=== PATIENT | female | born 1990 | race Caucasian/White ===

== ENCOUNTER 2017-01-07 17:45 | Emergency (ER) | payer OTHER ==
--- NOTE | ~2017-01-07 | CT4 ---
[facility] A Service of [facility] RADIOLOGY TEXT RESULTS PATIENT: ROSE MUNOZ LOCATION: [facility] : 86 UNIT #: [id number] AGE: [address]: Raymond Og MD SEX: F ORDER DR: [id number] [facility] [address] [place], [place] [address] [id number] E MR#: [id number] Acc #: [id number] NAME: ROSE MUNOZ : 1990 SEX: F STUDY DATE/TIME: 01/07/2017 22:07 UNIT: [facility] ROOM: STUDY DESCRIPTION: CT Abd and Pelv Wo Cont Attending Physician: Raymond Og M.D. Ordering Physician: Raymond Og M.D. Primary Care Physician: Heriberto Espino M.D. MEDICAL IMAGING REPORT This report is preliminary unless electronic signature is present EXAM CT abdomen and pelvis without contrast INDICATIONS Abdominal pain for 3 months which is worse in the last week. The CT exam was performed with one or more of the following radiation dose reduction techniques: automatic exposure control, adjustment of mA and/or kV according to patient size, and iterative reconstruction. Comparison study 02/15/2016. Axial 3 mm images were obtained through the abdomen and pelvis without IV or oral contrast. FINDINGS Lung bases are clear. The liver, gallbladder, spleen, pancreas, adrenal glands and kidneys are normal. The right renal pelvis is slightly larger than the left but I do not think the calyces are distended and the ureter is not distended and there are no stones visible. The aorta is normal in size and there is no adenopathy. The bowel including the appendix appears normal. The uterus and adnexal regions normal except for an IUD. The bladder is normal. The bones are unremarkable. IMPRESSION 1. Normal appendix. 2. There is an IUD in good position in the uterus. 3. Otherwise normal. Dictated by... Tre Tran M.D. [facility] A Service of [facility] RADIOLOGY TEXT RESULTS PATIENT: ALEXANDER,ROSE LOCATION: [facility] : 86 UNIT #: [id number] AGE: [address]: Raymond Og MD SEX: F ORDER DR: THIS IS AN ELECTRONICALLY VERIFIED REPORT Tre Tran M.D. at 01/08/2017 1:36 PM Mayelin TD: 01/08/2017 12:26 JOB #: [id number] MEDICAL IMAGING REPORT Page 1 of 1 COPY
[~2017-01-07 17:45] MED LIST: BACTRIM DS TABL1 TA2 PO; FLEXERIL10 MG PO; MACROBID100 MG PO; NAPROSYN500 MG PO; NO MEDICATIONS; PREDNISONE PO; PRENATAL1 TA1 PO
[2017-01-07 20:00] LABS: URINE SOURCE CLEAN CATCH
[2017-01-07 20:08] LABS: BASOPHIL# 0.1 X10e3 (0-0.3); BASOPHIL% 0.7 % (0-2.5); EOSINOPHIL# 0.4 X10e3 (0-0.7); EOSINOPHIL% 4.6 % (0.0-7.0); HEMATOCRIT 36.2 % (35.0-45.0); HEMOGLOBIN 11.6 gm/dL (12.0-16.0); LYMPHOCYTE# 2.7 X10e3 (1.0-3.5); LYMPHOCYTE% 28.4 % (17.0-45.0); MEAN CELL VOLUME 79.4 FL (83-96); MEAN CORPUSCULAR HEMOGLOBIN 25.6 PG (28-34); MEAN CORPUSCULAR HGB CONC 32.2 g/dL (30-36); MEAN PLATELET VOLUME 8.5 FL (6.5-11.5); MONOCYTE# 0.6 X10e3 (0-1.0); MONOCYTE% 6.3 % (3.0-12.0); NEUTROPHIL# 5.7 X10e3 (1.5-7.1); PLATELET COUNT 296 X10e3 (140-420); RED BLOOD COUNT 4.55 X10e (3.90-5.30); RED CELL DISTRIBUTION WIDTH 14.9 % (11.0-15.5); WHITE BLOOD COUNT 9.5 X10e3 (4.0-10.5)
[2017-01-07 20:10] LABS: URINE APPEARANCE CLEAR; URINE BILIRUBIN NEG (NEG); URINE BLOOD NEG (NEG); URINE COLOR YELLOW; URINE GLUCOSE NEG (NEG); URINE KETONE NEG (NEG); URINE LEUKOCYTE ESTERASE NEG (NEG); URINE NITRATE NEG (NEG); URINE PROTEIN NEG (NEG); URINE UROBILINOGEN 0.2 MG/DL (NEG)
[2017-01-07 20:12] LABS: DIFF IND NO
[2017-01-07 20:17] LABS: CULTURE INDICATED? NO
[2017-01-07 20:31] LABS: ALBUMIN SERUM 3.8 g/dL (3.5-5.0); ALKALINE PHOSPHATASE 62 U/L (32-92); ALT (SGPT) 24 U/L (10-40); AMYLASE 18 U/L (0-46); AST (SGOT) 28 U/L (10-42); BILIRUBIN,TOTAL 0.4 mg/dL (0.2-2.0); BLOOD UREA NITROGEN 10 mg/dL (9-23); CALCIUM SERUM 8.5 mg/dL (8.4-10.2); CARBON DIOXIDE 24 mmol/L (22-31); CHLORIDE 105 mmol/L (100-111); CREATININE SERUM 0.8 mg/dL (0.6-1.4); GLOM FILT RATE Estimated 100.4 mL/min (>60); GLUCOSE FASTING 84 mg/dL (70-110); LIPASE 23 U/L (22-51); POTASSIUM 3.9 mmol/L (3.5-5.1); PROTEIN TOTAL SERUM 6.9 g/dL (6.0-8.3); SODIUM 136 mmol/L (135-145)
[2017-01-07 20:32] LABS: BILIRUBIN, DIRECT <0.1 mg/dL (0.0-0.2); BILIRUBIN,INDIRECT 0.3 mg/dL (0.0-0.9)
== END 2017-01-07 22:51 | disposition home or self-care (01) ==
LOC: CED 17:45
DX: R10.84 Generalized abdominal pain (principal); F41.9 Anxiety disorder, unspecified; Z88.8 Allergy status to other drugs, medicaments and biological substances; Z91.018 Allergy to other foods
CPT/HCPCS: 36415; 74176; 80048; 80076; 81003; 82150; 83690; 84703; 85025; 99284

== ENCOUNTER 2017-02-23 20:01 | Emergency (ER) | payer OTHER ==
[~2017-02-23] VITALS: Ht 165.1 cm; Wt 104.3 kg
--- NOTE | ~2017-02-23 | CT2 ---
[facility] A Service of [facility] RADIOLOGY TEXT RESULTS PATIENT: ROSE MUNOZ LOCATION: [facility] : 86 UNIT #: [id number] AGE: [address]: Jericho Mccarthy MD SEX: F ORDER DR: [id number] [facility] [address] [place], [place] [address] [id number] E MR#: [id number] Acc #: [id number] NAME: ROSE MUNOZ : 1990 SEX: F STUDY DATE/TIME: 02/23/2017 23:58 UNIT: [facility] ROOM: STUDY DESCRIPTION: CT Abd and Pelv W Cont Attending Physician: Jericho Mccarthy M.D. Ordering Physician: Jericho Mccarthy M.D. Primary Care Physician: Heriberto Espino M.D. MEDICAL IMAGING REPORT This report is preliminary unless electronic signature is present EXAM CT abdomen and pelvis with IV contrast HISTORY Abdomen pain, nausea and vomiting today. TECHNIQUE This CT exam was performed with one or more of the following radiation dose reduction techniques: automatic control, adjustment of mA and/or kV according to patient size, and iterative reconstruction. FINDINGS CT abdomen and pelvis was performed with IV contrast. CT ABDOMEN: The liver, gallbladder, spleen, pancreas, kidneys, and adrenal glands are normal. No bowel dilatation. Normal caliber abdominal aorta. No ascites. No adenopathy. CT PELVIS: Normal appendix. No free fluid. IUD extends from the lower uterus into the cervix. Urinary bladder is unremarkable. IMPRESSION 1. No acute findings in the abdomen or pelvis. 2. Normal appendix. 3. No bowel obstruction or urinary obstruction. 4. IUD extends from the lower uterus into the cervix. Dictated by... Wallace Guillaume M.D. THIS IS AN ELECTRONICALLY VERIFIED REPORT Wallace Guillaume M.D. at 02/25/2017 6:28 AM [facility] A Service of [facility] RADIOLOGY TEXT RESULTS PATIENT: ROSE MUNOZ LOCATION: [facility] : 86 UNIT #: [id number] AGE: [address]: Jericho Mccarthy MD SEX: F ORDER DR: PADMINI/angely TD: 02/25/2017 02:21 JOB #: [id number] MEDICAL IMAGING REPORT Page 1 of 1 COPY
[2017-02-23 20:42] LABS: BASOPHIL# 0.1 X10e3 (0-0.3); EOSINOPHIL# 0.5 X10e3 (0-0.7); EOSINOPHIL% 5.4 % (0.0-7.0); HEMATOCRIT 35.2 % (35.0-45.0); HEMOGLOBIN 11.5 gm/dL (12.0-16.0); LYMPHOCYTE% 31.2 % (17.0-45.0); MEAN CELL VOLUME 79.1 FL (83-96); MEAN CORPUSCULAR HEMOGLOBIN 25.9 PG (28-34); MEAN CORPUSCULAR HGB CONC 32.7 g/dL (30-36); MEAN PLATELET VOLUME 8.3 FL (6.5-11.5); MONOCYTE# 0.6 X10e3 (0-1.0); MONOCYTE% 6.5 % (3.0-12.0); NEUTROPHIL# 5.4 X10e3 (1.5-7.1); NEUTROPHIL% 55.9 % (40-75); PLATELET COUNT 331 X10e3 (140-420); RED BLOOD COUNT 4.44 X10e (3.90-5.30); RED CELL DISTRIBUTION WIDTH 14.9 % (11.0-15.5); WHITE BLOOD COUNT 9.6 X10e3 (4.0-10.5)
[2017-02-23 20:44] LABS: DIFF IND NO
[2017-02-23 21:04] LABS: ALBUMIN SERUM 3.8 g/dL (3.5-5.0); BILIRUBIN, DIRECT 0.1 mg/dL (0.0-0.2); BILIRUBIN,INDIRECT 0.2 mg/dL (0.0-0.9); BILIRUBIN,TOTAL 0.3 mg/dL (0.2-2.0); CALCIUM SERUM 8.4 mg/dL (8.4-10.2); CREATININE SERUM 0.6 mg/dL (0.6-1.4); POTASSIUM 3.5 mmol/L (3.5-5.1)
[2017-02-23 21:46] LABS: URINE SOURCE CLEAN CATCH
[2017-02-23 21:55] LABS: URINE APPEARANCE CLOUDY; URINE BILIRUBIN NEG (NEG); URINE BLOOD TRACE (NEG); URINE COLOR YELLOW; URINE GLUCOSE NEG (NEG); URINE KETONE NEG (NEG); URINE LEUKOCYTE ESTERASE 3+ (NEG); URINE NITRATE NEG (NEG); URINE PH 5.5 (5-8); URINE PROTEIN NEG (NEG); URINE SPECIFIC GRAVITY 1.014 (1.003-1.035); URINE UROBILINOGEN 0.2 MG/DL (NEG)
[2017-02-23 21:58] LABS: CULTURE INDICATED? YES; URINE BACTERIA AUWI 2+ (NEGATIVE); URINE SQUAMOUS EPITHELIAL CELL OCC /[HPF]; UWBCS1 AUWI 50-100 (0-5)
== END 2017-02-24 01:05 | disposition home or self-care (01) ==
LOC: CED 20:01
DX: N39.0 Urinary tract infection, site not specified (principal); Z88.6 Allergy status to analgesic agent; Z91.018 Allergy to other foods
CPT/HCPCS: 36415; 74177; 80048; 80076; 81003; 83690; 84703; 85025; 87086; 96361; 96374; 96375; 99284; J1885; J2405; Q9967